=== PATIENT | female | born 1955 | race Caucasian/White ===

== ENCOUNTER → 2021-06-28 12:00 | Emergency (ER) | payer OTHER, SELFPAY ==
--- NOTE | 2021-06-28 12:32 | PC.NURSE ---
Patient never seen by this nurse. Was notified by registration that we do not fill out workmans comp papers. Patient decided to leave.
== END | disposition left against medical advice (07) ==
PROVIDERS: Emergency Provider Nurse Practitioner
DX: Z53.21 Procedure and treatment not carried out due to patient leaving prior to being seen by health care provider (principal)
CPT/HCPCS: 99199